=== PATIENT | male | born 1995 | race Caucasian/White ===

== ENCOUNTER → 2019-06-16 14:03 | Outpatient (CLI) | payer OTHER, SELFPAY | PROVIDERS: Visit Provider Nurse Practitioner | DX: R07.0 Pain in throat (principal) | CPT/HCPCS: 87070; 87077; 87147 ==

== ENCOUNTER → 2021-03-11 07:28 | Outpatient (CLI) | payer OTHER, SELFPAY ==
[2021-03-11 07:53] LABS: COVID19 -Nasal RAPID Negative (Negative)
== END ==
PROVIDERS: Visit Provider Nurse Practitioner Family
DX: Z20.822 Contact with and (suspected) exposure to COVID-19 (principal); R11.0 Nausea; R19.7 Diarrhea, unspecified
CPT/HCPCS: 87635